=== PATIENT | female | born 1985 | race Caucasian/White ===

== ENCOUNTER 2016-05-27 08:22 | Emergency (ER) | payer OTHER ==
--- NOTE | 2016-05-27 08:53 | ERPHSYRPT ---
- History of Present Illness Time Seen by Provider: 05/27/16 08:47 Source: patient Exam Limitations: no limitations Patient Subjective Stated Complaint: PT REPORTS BEING 13 WKS PREG-HAD SEX THIS AM ET BEGAN SPOTTING BRIGHT RED BLOOD-REPORTS MILD CRAMPING LOW RIGHT ABD Triage Nursing Assessment: PT PINK WARM ET DRY-A & O X 3-ABD NONTENDER TO PALP Physician History: The patient is a 31-year-old at 13 weeks with her complaining of mild bloody discharge that began this morning about an hour after having intercourse. She and her had intercourse at 5 AM and by 6: 00 she noticed some spotting. She went to work. 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 She complains of mild right groin cramping that has lessened over time. Her obstetric history has not taken place for this . She is to see her OB on June 09. She has not had an ultrasound. Timing/Duration: hour(s) (3) Activites at Onset: sexual activity Quality: cramping Onset Location: RLQ Severity of Pain-Max: mild Severity of Pain-Current: mild Prior abdominal problems: none Sexual intercourse history: non-contributory Modifying Factors: Improves With: nothing Associated Symptoms: Allergies/Adverse Reactions: No Known Drug Allergies Allergy (Unverified 05/27/16 08:36) Home Medications: No Home Meds 1 [facility] UD 05/27/16 [History] Hx Tetanus, Diphtheria Vaccination/Date Given: No Hx Influenza Vaccination/Date Given: No Hx Pneumococcal Vaccination/Date Given: No - Review of Systems Constitutional: No Fever, No Chills Eyes: No Symptoms Ears, Nose, & Throat: No Symptoms Respiratory: No Cough, No Dyspnea Cardiac: No Chest Pain, No Edema, No Syncope Abdominal/Gastrointestinal: Other (cramping) Genitourinary Symptoms: Vaginal Bleeding Musculoskeletal: No Back Pain, No Neck Pain Skin: No Rash Neurological: No Dizziness, No Focal Weakness, No Sensory Changes Psychological: No Symptoms Endocrine: No Symptoms Hematologic/Lymphatic: No Symptoms Immunological/Allergic: No Symptoms All Other Systems: Reviewed and Negative - Past Medical History Pertinent Past Medical History: No - Past Surgical History Past Surgical History: No - Social History Smoking Status: Never smoker Exposure to second hand smoke: No Drug Use: none Patient Lives Alone: No - Nursing Vital Signs Nursing Vital Signs: Initial Vital Signs Temperature 98.1 F Temperature Source Oral Pulse Rate 78 Respiratory Rate 20 Blood Pressure [] 105/71 Pain Intensity 2 - Physical Exam General Appearance: no apparent distress, alert Eye Exam: PERRL/EOMI, eyes nml inspection Ears, Nose, Throat Exam: normal ENT inspection, TMs normal, pharynx normal, moist mucous membranes Neck Exam: normal inspection, non-tender, supple, full range of motion Respiratory Exam: normal breath sounds, lungs clear, No respiratory distress Cardiovascular Exam: regular rate/rhythm, normal heart sounds, normal peripheral pulses Gastrointestinal/Abdomen Exam: tenderness (right groin) Pelvic Exam: not done Rectal Exam: not done Back Exam: normal inspection, normal range of motion, No CVA tenderness, No vertebral tenderness Extremity Exam: normal inspection, normal range of motion, pelvis stable Neurologic Exam: alert, oriented x 3, cooperative, hydrator operator II-XII nml as tested, normal mood/affect, sensation nml, No motor deficits Skin Exam: normal color, warm, dry Lymphatic Exam: No adenopathy SpO2 Interpretation: normal SpO2: 98 Oxygen Delivery: Room Air - Radiology Ultrasound Exam OB Ultrasound: IUP, Other (report from U/S tech is 13 wk IUP with FHT of 150) Ordered Tests: Active Orders 24 hr Category Date Time Status IV Insertion STAT Care 05/27/16 08:57 Active OB TRANSVAGINAL [US] Stat Exams 05/27/16 09:02 Ordered BMP Stat Lab 05/27/16 08:50 Completed CBC W DIFF Stat Lab 05/27/16 08:50 Completed HCG, Quantitative (Inhouse) Stat Lab 05/27/16 08:50 Completed UA W/ MICROSCOPIC Stat Lab 05/27/16 08:50 Completed Medication Summary Generic Name Dose Route Start Last Admin Trade Name Freq PRN Reason Stop Dose Admin Sodium Chloride 1,000 mls @ 100 mls/hr 05/27/16 09:00 05/27/16 09:25 Sodium Chloride 0.9% 1000 Ml IV 06/26/16 08:59 100 mls/hr .Q10H JUANY Administration Lab/Rad Data: Laboratory Result Diagrams 05/27/16 08:50 05/27/16 08:50 Laboratory Results 05/27/16 05/27/16 05/27/16 Range/Units 09:11 09:11 08:50 WBC (4.0-10.5) K/mm3 RBC (4.1-5.4) M/mm3 Hgb (12.0-16.0) gm/dl Hct (35-47) % MCV (78-100) fl MCH (26-32) pg MCHC (32-36) g/dl RDW (11.5-14.0) % Plt Count (150-450) K/mm3 MPV (6-9.5) fl Gran % (36.0-66.0) % Lymphocytes % (24.0-44.0) % Monocytes % (0.0-12.0) % Eosinophils % (0.00-5.0) % Basophils % (0.0-0.4) % Basophils # (0-0.4) Sodium (136-145) mEq/L Potassium (3.5-5.1) mEq/L Chloride (98-107) mEq/L Carbon Dioxide (21-32) mEq/L Anion Gap (5-15) MEQ/L BUN (9-20) mg/dL Creatinine (0.55-1.30) mg/dl Estimated GFR ML/MIN Glucose (70-110) MG/DL Calcium (8.5-10.1) mg/dL Beta HCG, Quant (0-6) IU/L Ur Collection Type VOID Urine Color YELLOW (YELLOW) Urine Appearance CLEAR (CLEAR) Urine pH 6.0 (5-6) Ur Specific [place] 1.020 (1.005-1.025) Urine Protein NEGATIVE (Negative) Urine Glucose (UA) NEGATIVE (NEGATIVE) mg/dL Urine Ketones NEGATIVE (NEGATIVE) Urine Nitrite NEGATIVE (NEGATIVE) Urine Bilirubin NEGATIVE (NEGATIVE) Urine Urobilinogen 0.2 (0-1) mg/dL Urine WBC (Auto) NEGATIVE (NEGATIVE) Urine RBC (Auto) MODERATE (0-5) Bryce/ul Urine Microscopic RBC 0-2 (0-2) /HPF Urine Microscopic WBC 0-2 (0-5) /HPF Ur Epithelial Cells FEW (FEW) /HPF Specimen Received 05/27/16 0945 ABO Group 0 Rh Factor POSITIVE 05/27/16 05/27/16 Range/Units 08:50 08:50 WBC 11.7 H (4.0-10.5) K/mm3 RBC 4.48 (4.1-5.4) M/mm3 Hgb 13.8 (12.0-16.0) gm/dl Hct 40.2 (35-47) % MCV 89.7 (78-100) fl MCH 30.8 (26-32) pg MCHC 34.3 (32-36) g/dl RDW 12.2 (11.5-14.0) % Plt Count 234 (150-450) K/mm3 MPV 10.1 H (6-9.5) fl Gran % 72.3 H (36.0-66.0) % Lymphocytes % 21.3 L (24.0-44.0) % Monocytes % 5.7 (0.0-12.0) % Eosinophils % 0.4 (0.00-5.0) % Basophils % 0.3 (0.0-0.4) % Basophils # 0.03 (0-0.4) Sodium 133 L (136-145) mEq/L Potassium 3.8 (3.5-5.1) mEq/L Chloride 102 (98-107) mEq/L Carbon Dioxide 20.3 L (21-32) mEq/L Anion Gap 14.0 (5-15) MEQ/L BUN 9 (9-20) mg/dL Creatinine 0.59 (0.55-1.30) mg/dl Estimated GFR > 60 ML/MIN Glucose 86 (70-110) MG/DL Calcium 8.5 (8.5-10.1) mg/dL Beta HCG, Quant 34800 H (0-6) IU/L Ur Collection Type Urine Color (YELLOW) Urine Appearance (CLEAR) Urine pH (5-6) Ur Specific [place] (1.005-1.025) Urine Protein (Negative) Urine Glucose (UA) (NEGATIVE) mg/dL Urine Ketones (NEGATIVE) Urine Nitrite (NEGATIVE) Urine Bilirubin (NEGATIVE) Urine Urobilinogen (0-1) mg/dL Urine WBC (Auto) (NEGATIVE) Urine RBC (Auto) (0-5) Bryce/ul Urine Microscopic RBC (0-2) /HPF Urine Microscopic WBC (0-5) /HPF Ur Epithelial Cells (FEW) /HPF Specimen Received ABO Group Rh Factor - Progress Progress: improved Air Movement: good Blood Culture(s) Obtained: No Antibiotics given: No Counseled pt/family regarding: lab results, diagnosis, need for follow-up - Departure Time of Disposition: 10:40 Departure Disposition: Home Clinical Impression: Vaginal bleeding in Condition: Stable Critical Care Time: No Additional Instructions: You experienced mild vaginal bleeding after intercourse today. The lab results were unremarkable except for the sodium which was slightly low. Your blood type is O+. Contact your OB doctor and follow-up sooner then the scheduled visit.
[2016-05-27] MEDS ORDERED: Sodium Chloride 0.9% 1000 ML 1,000 ML IV SCH (09:00)
[2016-05-27] MEDS ORDERED: Sodium Chloride 0.9% 1000 ML 1,000 ML ONE (09:21)
[2016-05-27 09:27] LABS: BASOPHIL % 0.3 % (0.0-0.4); Eosinophil % 0.4 % (0.00-5.0); Granulocytes % 72.3 % (36.0-66.0); Lymphocytes % 21.3 % (24.0-44.0); Mean Cell Volume 89.7 fl (78-100); Mean Corpuscular Hemoglobin 30.8 pg (26-32); Mean Platelet Volume 10.1 fl (6-9.5); Monocytes % 5.7 % (0.0-12.0); Platelet Count 234 K/mm3 (150-450); Red Blood Count 4.48 M/mm3 (4.1-5.4); Red Cell Distribution Width 12.2 % (11.5-14.0); White Blood Count 11.7 K/mm3 (4.0-10.5)
[2016-05-27 10:00] LABS: Collection Type VOID
[2016-05-27 10:01] VITALS: O2SAT 98
[2016-05-27 10:01] LABS: COMPLETE URINE MICROSCOPIC? YES
[2016-05-27 10:03] LABS: Epithelial Cells FEW /HPF (FEW); WBC 0-2 /HPF (0-5)
[2016-05-27 10:15] LABS: BLOOD UREA NITROGEN 9 mg/dL (9-20); CHLORIDE 102 mEq/L (98-107); Carbon Dioxide 20.3 mEq/L (21-32); Glucose 86 MG/DL (70-110); HCG, Quantitative (Inhouse) 63887 IU/L (0-6); Potassium 3.8 mEq/L (3.5-5.1); SODIUM 133 mEq/L (136-145)
[2016-05-27 11:06] VITALS: BP 116/71; PULSE 70
--- NOTE | 2016-05-27 14:37 | XRAY ---
Indication: Spotting after intercourse. Two-dimensional transabdominal early OB ultrasound was performed. Comparison: None There is a single intrauterine gestational sac with presence of a single pole. Mean crown-rump length measures 6.72 cm corresponding to 13 weeks 0 days. heart rate 159 bpm. No abnormal subchorionic fluid collection. Right ovary demonstrates a 3.2 cm corpus luteal cyst. Left ovary unremarkable. No suspicious adnexal mass or free fluid. Impression: Single viable intrauterine measuring 13 weeks 0 days. Expected date confinement is December 02, 2016. No acute findings. Comment: Preliminary report was given.
== END 2016-05-27 11:05 | disposition home or self-care (01) ==
LOC: ED 08:22
DX: O20.8 Other hemorrhage in early pregnancy (principal); R10.31 Right lower quadrant pain; Z3A.13 13 weeks gestation of pregnancy
CPT/HCPCS: 36000; 36415; 76801; 80048; 81000; 84702; 85025; 86900; 86901; 96360; 96361; 99285

== ENCOUNTER 2016-08-30 15:23 | Observation (INO) | payer OTHER ==
[2016-08-30 15:37] VITALS: BP 123/63; PULSE 78; O2SAT 96
[2016-08-30 15:48] LABS: Bilirubin NEGATIVE (NEGATIVE); Blood 50 Ery/ul (0-5); COMPLETE URINE MICROSCOPIC? YES; Collection Type VOID; Glucose NEGATIVE (NEGATIVE); Leukocyte Esterase 1+ (NEGATIVE)
[2016-08-30 15:53] LABS: Bacteria FEW /HPF (NEGATIVE); Epithelial Cells FEW /HPF (FEW)
== END 2016-08-30 16:45 | disposition home or self-care (01) ==
LOC: OB 15:23
PROVIDERS: ADMIT Family Medicine; ATTEND Family Medicine
DX: Z34.82 Encounter for supervision of other normal pregnancy, second trimester (principal)
CPT/HCPCS: 80307; 81000; G0378

== ENCOUNTER 2016-09-18 16:33 | Observation (INO) | payer OTHER ==
--- NOTE | 2016-09-18 17:31 | XRAY ---
Indication: Status post fall. Two-dimensional OB ultrasound performed. Comparison: June 30, 2016. Again there is a single viable intrauterine currently in cephalic presentation. Normal four-chamber heart with heart rate 143 bpm. Normal three-vessel cord. Visualized stomach, kidneys, and bladder are unremarkable. Placenta is anterior without abruption/previa. BPD measures 7.86 cm corresponding to 31 weeks 4 days. HC measures 26.86 cm corresponding to 29 weeks 2 days. AC measures 25.60 cm corresponding to 29 weeks 5 days. FL measures 5.69 cm corresponding to 29 weeks 6 days. KEVIN is 15.7 cm. Impression: Again single viable intrauterine with mean gestational age 30 weeks 1 day. Normal progression in . Nothing acute.
[2016-09-18 22:08] VITALS: BP 107/64; PULSE 78
== END 2016-09-18 20:55 | disposition home or self-care (01) ==
LOC: UNDOADMOB 16:33 → OB 16:33 → UNDODISOB 20:55
PROVIDERS: ADMIT Family Medicine; ATTEND Family Medicine
DX: Z34.83 Encounter for supervision of other normal pregnancy, third trimester (principal)
CPT/HCPCS: 76805; 80307; G0378

== ENCOUNTER 2016-11-09 17:16 | Observation (INO) | payer OTHER ==
[2016-11-09 17:48] VITALS: BP 117/65; PULSE 86
[2016-11-09 17:58] VITALS: O2SAT 97
== END 2016-11-09 21:00 | disposition home or self-care (01) ==
LOC: OB 17:16
PROVIDERS: ADMIT Family Medicine; ATTEND Family Medicine
DX: Z34.83 Encounter for supervision of other normal pregnancy, third trimester (principal)
CPT/HCPCS: 80307; G0378

== ENCOUNTER 2016-11-23 06:37 | Inpatient (IN) | payer OTHER ==
[2016-11-23] MEDS ORDERED: BRETHINE 1 MG/ML SQ PRN (07:53)
[2016-11-23] MEDS ORDERED: XYLOCAINE 1% HCL 20 ML MDV IJ PRN (07:58)
[2016-11-23] MEDS ORDERED: PITOCIN 30 UNITS/ LR 500 ML 500 ML IV SCH (08:00)
[2016-11-23 08:26] LABS: BASOPHIL % 0.2 % (0.0-0.4); Eosinophil % 0.6 % (0.00-5.0); Lymphocytes % 19.6 % (24.0-44.0); Mean Cell Volume 89.8 fl (78-100); Mean Platelet Volume 10.7 fl (6-9.5); Monocytes % 8.6 % (0.0-12.0); Platelet Count 216 K/mm3 (150-450); Red Blood Count 4.13 M/mm3 (4.1-5.4); Red Cell Distribution Width 13.4 % (11.5-14.0); White Blood Count 10.8 K/mm3 (4.0-10.5)
[2016-11-23] MEDS: Lactated Ringers 1,000 ML IV SCH ×4 (09:10→21:38)
[2016-11-23] MEDS ORDERED: OB EPIDURAL NAROPIN/SUFENTANIL IN NACL EPIDURAL PRN (15:18)
[2016-11-23] MEDS ORDERED: Lactated Ringers 1,000 ML IV ONE (15:18)
[2016-11-23] MEDS ORDERED: Ephedrine Sulfate 50 MG/ML IV PRN (15:18)
[2016-11-23] MEDS ORDERED: Astramorph-Pf 5 MG/10 ML IV ONE (17:28)
[2016-11-23] MEDS ORDERED: BICITRA 30 ML CUP ONE (22:31)
[2016-11-23] MEDS ORDERED: Reglan 10 MG/2 ML ONE (22:31)
[2016-11-23] MEDS ORDERED: Pepcid 20 MG VIAL IV ONE (22:31)
[2016-11-23] MEDS ORDERED: Reglan 10 MG/2 ML IV SCH (22:45)
[2016-11-23] MEDS ORDERED: BICITRA 30 ML CUP PO SCH (22:45)
[2016-11-23] MEDS ORDERED: Pepcid 20 MG VIAL IV SCH (22:45)
[2016-11-23 23:22] LABS: INR 1.03 (0.8-3.0); PROTIME 11.5 SECONDS (9.95-12.35)
[2016-11-23 23:25] LABS: PTT 27.4 SECONDS (25.3-37.0)
[2016-11-23] MEDS ORDERED: KEFZOL 1 GM ONE (23:26)
[2016-11-24] MEDS ORDERED: DEMEROL 50 MG ONE (00:32)
[2016-11-24] MEDS ORDERED: CLARITIN 10 MG ONE (02:27)
[2016-11-24] MEDS ORDERED: Nubain 10 MG/ML IV PRN (02:30)
[2016-11-24] MEDS ORDERED: Zofran 4 MG/2 ML VIAL IV PRN (02:30)
[2016-11-24] MEDS ORDERED: DEMEROL 50 MG IV PRN (02:30)
[2016-11-24] MEDS ORDERED: Sodium Chloride 0.9% 10 ML FLUSH Syringe IJ PRN (02:30)
[2016-11-24] MEDS ORDERED: MORPHINE SULFATE 2 MG INJ IV PRN (02:30)
[2016-11-24] MEDS ORDERED: Narcan 0.4 MG/ML IV PRN (02:30)
[2016-11-24] MEDS ORDERED: BENADRYL 50 MG/ML IV PRN (02:30)
[2016-11-24] MEDS ORDERED: HOLD NARCOTIC ANALGESICS AND SEDATIVES X24 HR MC PRN (02:30)
[2016-11-24] MEDS ORDERED: CLARITIN 10 MG PO PRN (02:30)
[2016-11-24] MEDS: Dextrose 5%-Lr IV Solution 1000 ML 1,000 ML IV SCH ×2 (02:41→11:23)
[2016-11-24 05:51] LABS: Hepatitis B Sur Ag Screen Non Reactive (Non Reactive)
[2016-11-24 06:09] LABS: Mean Cell Volume 90.7 fl (78-100); Mean Platelet Volume 10.3 fl (6-9.5); Platelet Count 206 K/mm3 (150-450); Red Blood Count 3.97 M/mm3 (4.1-5.4); Red Cell Distribution Width 13.4 % (11.5-14.0); White Blood Count 19.1 K/mm3 (4.0-10.5)
[2016-11-24 06:14] LABS: Mean Corpuscular Hemoglobin 30.4 pg (26-32)
[2016-11-24] MEDS ORDERED: XYLOCAINE 2%/Epi 1:200000 20ML VIAL MPF IJ ONE (08:00)
[2016-11-24] MEDS ORDERED: Zofran 4 MG/2 ML VIAL IV ONE (08:00)
[2016-11-24] MEDS ORDERED: Nesacaine 3% -Mpf*** 20ML SDV IJ ONE (08:00)
--- NOTE | 2016-11-24 08:05 | OP ---
SURGERY DATE/TIME: 11/24/2016 2322 PREOPERATIVE DIAGNOSIS: Term intrauterine , nonreassuring heart rate tracing and failure to progress in labor past 6 cm. POSTOPERATIVE DIAGNOSIS: Term intrauterine , nonreassuring heart rate tracing and failure to progress in labor past 6 cm plus endometrioma. PROCEDURES: 1) Primary lower uterine segment transverse incision section. 2) Bilateral tubal ligation. SURGEON: Dr. Jackson. ANESTHESIA: Epidural. HISTORY: The patient is a 31 year old white female presenting now for section due to the above diagnosis. She was appraised of the risks of the procedure including the risk of wound infection, possible bleeding requiring transfusion and possible injury to any intra-abdominal organs. The patient verbalized her understanding and desired to have the procedure performed. DESCRIPTION OF PROCEDURE: She was prepped and draped in the supine position. After adequate regional anesthesia was confirmed, a Pfannenstiel incision was made and carried down sharply through the fascia which was then divided in a horizontal fashion. The rectus muscles were then bluntly and sharply dissected away from the overlying fascia and bluntly retracted laterally. The peritoneum was then entered. A bladder flap was developed and the bladder was retracted inferiorly. There was noted to be some thin fibrous adhesions noted across the anterior portion of the uterus at this point. The uterus is scored in the midline and entered in the midline. The wound was extended using bandage scissors and a white infant was delivered through the abdominal wound. The cord was doubly clamped and divided between the clamps and the baby was handed off for further care. The placenta was then manually removed from the uterus and sent off for evaluation. The uterus was then wrapped in moist gauze. The wound edges were then reapproximated using 1-0 chromic suture in a running, interlocking fashion. Next attention was turned to the right fallopian tube which was elevated with [place] clamp. A hemostat was passed into the avascular section of the mesosalpinx resulting in interceding sections were excised. The exposed edges of the tube were cauterized with a Bovie. The left tube was similarly treated. Upon replacing the uterus into the abdominal cavity, there was noted to be some oozing of some old blood consistent with endometrioma this was suctioned clear and the areas were monitored for bleeding. After applying some pressure there was no bleeding noted at this point. The uterus was then replaced in the abdominal cavity. Pericolic gutters were also swabbed clear of blood and amniotic fluid. The peritoneum was then repaired using 3-0 chromic suture in a running fashion. The fascia was repaired using 0 Vicryl suture in a running fashion. The skin edges were reapproximated using 4-0 Vicryl suture in a subcuticular fashion and reinforced with Steri-Strips. The sponge, needle and instrument count was reported as correct at the end of the procedure. The patient did receive 2 gm of Cefazolin intraoperatively after the cord was clamped. Estimated blood loss was 350 cc. The patient was taken back to the recovery room in good condition.
[2016-11-24] MEDS ORDERED: LANSINOH 40 GM TOP PRN (10:30)
[2016-11-24] MEDS ORDERED: Mylicon 80MG PO PRN (10:30)
[2016-11-24] MEDS ORDERED: TYLENOL EXTRA STRENGTH 500 MG PO PRN (10:30)
[2016-11-24] MEDS ORDERED: Adacel Vial IM ONE (13:00)
[2016-11-24] MEDS: PERCOCET TABLET 5/325MG PO PRN ×2 (18:36→22:10)
[2016-11-24] MEDS: Colace 100 MG PO SCH (22:09)
[2016-11-24 22:47] VITALS: O2SAT 100
[2016-11-25] MEDS: PERCOCET TABLET 5/325MG PO PRN (02:24)
[2016-11-25] MEDS: Colace 100 MG PO SCH ×2 (08:57→20:40)
[2016-11-25] MEDS: NORCO 5/325 MG PO PRN ×4 (08:57→23:16)
[2016-11-25] MEDS: FERREX 150 PO SCH (08:58)
[2016-11-25] MEDS ORDERED: Miralax Powder 17GM PACKET PO PRN (13:55)
[2016-11-25] MEDS ORDERED: MOTRIN 400 MG PO PRN (19:56)
[2016-11-25] MEDS ORDERED: Dulcolax 10 MG SUPP PR PRN (21:04)
[2016-11-26] MEDS: NORCO 5/325 MG PO PRN ×2 (05:12→09:10)
[2016-11-26 09:01] VITALS: BP 122/71; PULSE 83
[2016-11-26] MEDS: Colace 100 MG PO SCH (09:09)
[2016-11-26] MEDS: FERREX 150 PO SCH (09:09)
--- NOTE | 2016-11-26 09:58 | PCM.DS ---
Discharge Summary Date of Admission: 11/23/16 14:13 Admitting Physician: MIGUEL ANGEL OTTO Consults: Consults on Case 11/24/16 02:30 Notify Anesthesia Provider PRN Primary Care Provider: MIGUEL ANGEL OTTO Allergies Allergies No Known Drug Allergies Allergy (Verified 09/18/16 16:49) Hospital Summary - Hospital Course Hospital Course: 31 yo came in for term induction, did C/s due to intolerance of labor. Of note, baby did have a nuchal cord and mom was noted to have extensive endometriosis and a chocolate cyst ruptured during the surgery (for full details, see Dr. Jackson's operative note). She has recovered steadily, has been out of bed well. Taking some norco but worried about constipation. Did have a bowel movement. Bleeding decreasing. No lightheadedness on standing. - Vitals & Intake/Output Vital Signs: Vital Signs Temperature 97.9 F 11/26/16 08:00 Pulse Rate 83 11/26/16 08:00 Respiratory Rate 18 11/26/16 08:00 Blood Pressure 122/71 11/26/16 08:00 O2 Sat by Pulse Oximetry 100 11/24/16 21:00 Oxygen-Last Documented O2 Percentage 100% Intake & Output: Intake & Output 11/23/16 11/24/16 11/25/16 11/26/16 11:59 11:59 11:59 11:59 Intake Total 4912 2040 Output Total 1400 2800 Balance 3512 -760 Weight 113.398 kg 113.398 kg - Lab Result Diagrams: 11/24/16 06:02 Micro Results-Entire Visit: Microbiology 11/23/16 17:30 Urine Culture - Final Catherized NO GROWTH Discharge Exam General Appearance: no apparent distress, obese Neurologic Exam: alert, oriented x 3, cooperative Skin Exam: normal color, warm, dry Respiratory Exam: normal breath sounds, No crackles/rales, No rhonchi, No wheezing Cardiovascular Exam: regular rate/rhythm, normal heart sounds, No murmur Gastrointestinal/Abdomen Exam: soft, other (hypoactive bowel sounds. fundus firm under umbilicus. wound c/d/i.) Extremity Exam: No pedal edema, No swelling Back Exam: normal inspection Final Diagnosis/Problem List - Final Discharge Diagnosis/Problem (1) delivery delivered Current Visit: Yes Status: Acute Assessment & Plan: POD #2, doing great, home today. [place] and ibuprofen. (2) Endometriosis Current Visit: Yes Status: Acute (3) Constipation Current Visit: Yes Status: Acute Assessment & Plan: she will try to use mostly ibuprofen for pain control. - Discharge Disposition: Home, Self-Care Condition: Stable Prescriptions: New Ibuprofen 800 mg PO TID PRN #35 tablet PRN Reason: Pain Hydrocodone Bit/Acetaminophen [[place] 10-325 Tablet] 1 each PO BID PRN #15 tablet PRN Reason: Pain Continue Hydroxyzine HCl 25 mg [Atarax 25 mg] 25 mg PO TID PRN PRN Reason: antianxiety Discontinued Acyclovir 400 mg PO BID Follow up with: MIGUEL ANGEL OTTO [Primary Care Provider] - 1 Week
== END 2016-11-26 11:25 | disposition home or self-care (01) | DRG 766 ==
LOC: OB 06:37 → OBSVTOIN 14:13 → OB 14:13
PROVIDERS: ADMIT Family Medicine; ATTEND Family Medicine
PROC: 10D00Z1 Extraction of Products of Conception, Low, Open Approach (ICD-10-PCS; principal; 2016-11-24)
PROC: 0UL70ZZ Occlusion of Bilateral Fallopian Tubes, Open Approach (ICD-10-PCS; 2016-11-24)
DX: O76 Abnormality in fetal heart rate and rhythm complicating labor and delivery (principal); O62.0 Primary inadequate contractions; Z3A.39 39 weeks gestation of pregnancy; Z37.0 Single live birth; Z30.2 Encounter for sterilization
CPT/HCPCS: 01961; 01968; 36415; 80307; 85025; 85027; 85610; 85730; 86592; 86701; 86702; 86762; 86850; 86900; 86901; 87086; 87340; 87389; 88302; 88307; 90384; 90715; G0378; J0690; J1200; J2175; J2274; J2405; J2590; J2795; A9270-GY

== ENCOUNTER 2019-08-11 09:50 | Day surgery (SDC) | payer BC ==
--- NOTE | 2019-08-11 09:08 | HP ---
AMENDED REPORT: DATE OF SURGERY: 08/11/2019 HISTORY OF PRESENT ILLNESS: The patient is a 34 year old with some cholelithiasis that started two years ago, increasing attacks, burning, upper abdominal aches, radiating to the back, associated with nausea and vomiting. PAST MEDICAL HISTORY: Anxiety, reflux. PAST SURGICAL HISTORY: in the past with tubal ligation. Genital herpes. MEDICATIONS: Prozac, omeprazole. ALLERGIES: NKDA. FAMILY HISTORY: Negative in regards to this problem. SOCIAL HISTORY: No smoking or alcohol abuse. REVIEW OF SYSTEMS: Fourteen systems reviewed per admission assessment. No chest pain or palpitations other systems negative or noncontributory as above and per preadmission questionnaire. PHYSICAL EXAMINATION: GENERAL: No acute distress. HEENT: Sclerae nonicteric. NECK: No JVD. CHEST: Equal excursion, nonlabored breathing. CVS: Regular rate and rhythm. ABDOMEN: Soft. No peritoneal signs. EXTREMITIES: No significant edema. NEURO: Alert, oriented, moving extremities symmetrically. No gross motor deficits noted. PSYCH: Appropriate mood and affect. IMPRESSION: Symptomatic cholelithiasis, probable chronic cholecystitis. I feel the patient will benefit from cholecystectomy. Risks and benefits explained in detail including but not limited to bleeding or infection, risk of bowel, bladder or blood vessel injury, risk of bile leak, bile duct injury, retained stone or sludge possibly requiring further procedure either open or ERCP, general risk of anesthesia, deep venous thrombosis, pulmonary embolism, pneumonia, perioperative risk of aches, pains, bloating, constipation and/or loose stools possibly even chronic in nature. General risk of deep venous thrombosis, pulmonary embolism or pneumonia, possibility that this procedure may not improve her symptoms that she may need further work up and/or testing, other studies or procedures. She understands and agrees to the planned procedure, will proceed with laparoscopic cholecystectomy.
[~2019-08-11 09:50] MED LIST: Lactated Ringers 1,000 ML IV SCH; MEFOXIN 2 GM PREMIX** 2 GM/50 ML ML IV SCH
[2019-08-11] MEDS ORDERED: Sensorcaine 0.25% 10 ML ONE (09:55)
[2019-08-11] MEDS ORDERED: Lactated Ringers 1,000 ML IV ONE ×2 (09:55→10:03)
[2019-08-11] MEDS ORDERED: MEFOXIN 2 GM PREMIX** 2 GM/50 ML ML IV ONE (10:03)
[2019-08-11] MEDS ORDERED: Decadron 4 MG INJ ONE (13:16)
[2019-08-11] MEDS ORDERED: BRIDION 200MG/2ML IV ONE (13:16)
[2019-08-11] MEDS ORDERED: Zofran 4 MG/2 ML VIAL ONE (13:16)
[2019-08-11] MEDS ORDERED: DIPRIVAN 200 MG/20 ML IV ONE (13:16)
[2019-08-11] MEDS ORDERED: Xylocaine-Mpf 2% 5 Ml Vial ONE (13:16)
[2019-08-11] MEDS ORDERED: SUBLIMAZE 100 MCG/2 ML ONE ×3 (13:16→15:30)
[2019-08-11] MEDS ORDERED: TORAdol 30 mg Injection ONE (13:16)
[2019-08-11] MEDS ORDERED: Zemuron 100 MG/10 ML ONE ×3 (13:16→14:49)
[2019-08-11] MEDS ORDERED: Thrombin-JMI 5000 UNITS TP ONE (15:10)
[2019-08-11] MEDS ORDERED: DILAUDID 2 MG INJECTION ONE (15:30)
[2019-08-11 17:00] VITALS: O2SAT 93
[2019-08-11] MEDS ORDERED: NORCO 5/325 MG PO PRN (17:00)
[2019-08-11] MEDS ORDERED: NORCO 5/325 MG ONE (17:01)
[2019-08-11 17:10] VITALS: BP 127/82; PULSE 65
--- NOTE | 2019-08-12 08:07 | OP ---
SURGERY DATE/TIME: 08/11/2019 1315 PREOPERATIVE DIAGNOSIS: Acute exacerbation of symptomatic cholelithiasis, chronic cholecystitis. POSTOPERATIVE DIAGNOSIS: Very large stone with significant concrete inflammation. PROCEDURE: Laparoscopic cholecystectomy. SURGEON: Dr. Maulik Pizano. ANESTHESIA: General. ESTIMATED BLOOD LOSS: Minimal. INDICATIONS: As noted above. Risks and benefits explained in detail but not limited to and consent obtained. DESCRIPTION OF PROCEDURE AND FINDINGS: The patient was taken to the operating room. General anesthesia induced. Abdomen prepped and draped in the usual sterile fashion. After official time out and no disagreement with planned procedure, a transverse incision made at the supraumbilical area. Fascia grasped and pulled upward. Veress needle inserted and tested with saline. Pneumoperitoneum accomplished insufflating opening pressure of 0-15. A 5 mm bladeless port and camera inserted without difficulty followed by two - 5 mm right upper quadrant ports and 5 mm epigastric port that was later switched to 12 port. The patient is quite obese, had fatty infiltrated liver and had large stones and very long gallbladder. Quite extension inflammation. Dissected slow, careful dissection posterior, lateral to anterior fashion accomplished. Carefully isolating the main cystic artery directly on the gallbladder wall and was clipped and divided in the usual fashion. Cystic duct and infundibular area slowly and carefully well skeletonized. It had concrete inflammation but with gentle dissection with gentle dissector with [place] until the critical view obtained both obtained both anterior and posteriorly. This is not easy as a large stone made it difficult to grasp the gallbladder as it was impacted in the Long's pouch region of the gallbladder. It was slowly and carefully accomplished. The critical view obtained both anterior and posteriorly. It was felt the most secure closure would be using the Endo-CODEY stapler and is fired across directly adjacent to the infundibulum away from the visible common duct. Gallbladder then slowly and carefully dissected free from its concrete reaction in the liver bed staying directly on the gallbladder wall this took quite some time. She had some bile seepage from the liver and two little, small stone particles. She had two remaining very large stones with a little bit smaller flat stones. Just by turning the gallbladder around there was seepage, some sludge and the small stones this was suction irrigated as well as possible. It took some time but slowly and carefully accomplished. Gallbladder slowly and carefully staying directly on the gallbladder wall clipping additional oozing side branches off the cystic artery. She had quite friable liver bed given her fatty infiltration but staying directly on the gallbladder wall clipping additional oozing side branch off the cystic artery directly on the gallbladder wall as necessary. The gallbladder is slowly and carefully dissected free. Just prior to releasing from final attachments to the anterior edge of the liver, clips noted in place main cystic artery and staple line intact cystic duct stump. It was clipped on small side branch of cystic artery. It appeared to have adequate hemostasis. A small piece of Surgicel had been left on raw edge of the peritoneum on the liver. Good hemostasis appeared to be noted. Gallbladder released from final attachments and placed in the provided bag as the original bag was contaminated. A second bag was used, pulled up. It was necessary to enlarge due to fascial defect a little bit finally pulled free. It was necessary to enlarge the skin incision to get the larger stones out and passed off for pathology. This fascial defect closed with puncture closure device under direct vision with the camera. The port was replaced. KIERAN drain placed in subhepatic space out through left port. Copious amount of irrigation accomplished lateral to the liver and subhepatic space irrigating clear. The 10/11 site supraumbilical area also closed with puncture closure device with #1 Vicryl under direct vision of the camera. Clips noted in place in cystic artery and stump. No signs of any bile leakage from the liver bed or cystic duct stump itself. Copious amount irrigation irrigating clear. KIERAN drain in good position. At this point pneumoperitoneum decompressed. The wound irrigated out. An additional 0 Vicryl placed in the epigastric fascial defect that had been slightly enlarged to allow for removal of the enlarged stones. Copious amount of irrigation irrigating clear. Skin incision closed with 4-0 Vicryl. Steri-Strips and sterile dressing applied. KIERAN drain secured with PDS suture and placed to bulb suction. There were no immediate complications. There was no family available to discuss the findings with. A difficult procedure. She has had these stones for quite some time. She was transferred to recovery room in stable condition.
== END 2019-08-11 17:15 | disposition home or self-care (01) ==
LOC: SDC 09:50
PROVIDERS: ATTEND Surgery
DX: K80.00 Calculus of gallbladder with acute cholecystitis without obstruction (principal)
CPT/HCPCS: 84703; 88304; J0694; J1100; J1170; J1885; J2405; J2704; J3010; A9270-GY